=== PATIENT | female | born 1955 | race Caucasian/White ===

== ENCOUNTER 2023-11-26 18:51 | Emergency (ER) | payer OTHER, SELFPAY ==
[2023-11-26 19:05] VITALS: BP 182/114
[2023-11-26 21:24] VITALS: BP 179/96
--- NOTE | 2023-11-26 21:28 | ED.GENMED ---
History of Present Illness
General
Chief Complaint: Fall
Source: patient
Exam Limitations: none
Time Seen by Provider: 11/26/23 21:25
History of Present Illness
History of Present Illness:
See MDM
Past History
Past History
ED Past Medical History: Arrthythmia
ED Past Surgical History: Appendectomy
Social History
Tobacco: Non-smoker
Alcohol: None
Phy Exam
Physical Exam
Physical Exam:
See MDM
Course
Orders/Labs/Results
Orders:
Orders
11/26/23 19:[address] [CT Head W/o Iv Contrast] Urgent
Comment:
Reason For Exam: FALL SOFT TISSUE SELLING RIGHT FACE ON ELIQUIS
Vital Signs
Initial and Last Documented VS:
Initial Vital Signs
Temp Pulse Resp BP Pulse Ox
98.7 F 90 22 182/114 98
11/26/23 19:05 11/26/23 19:05 11/26/23 19:05 11/26/23 19:05 11/26/23 19:05
Last Documented Vital Signs
Temp Pulse Resp BP Pulse Ox
98.7 F 90 22 179/96 98
11/26/23 19:05 11/26/23 19:05 11/26/23 19:05 11/26/23 21:24 11/26/23 21:25
MDM/Problems Addressed
Differential Diagnosis Includes:
HPI and MDM Narrative:
36-year-old female presenting for evaluation of frontal head injury. Patient states she took too much Ambien by accident last night and she fell forward hitting her head. She is on Eliquis. She states her family encouraged her to come to the
emergency department to rule out any sort of head injury or bleeding.
By the time I evaluate the patient, CT was already performed and shows no evidence of intracranial hemorrhage. Patient states she feels great and feels comfortable going home
Physical exam
General: Well appearing and non-toxic
HEENT: protecting airway. Right forehead hematoma. Pupils equal and reactive
Neck: No cervical tenderness, supple
CV: No evidence of cyanosis
Resp: No accessory muscle use
Abd: Non-distended
Extremities: No deformities
Neuro: alert
Psych: Normal affect
Skin: Intact
Problems Addressed including Acute and Chronic Conditions affecting care:
1. Head injury
Acuity: acute
Prognosis: stable
Details: CT head negative for intracranial hemorrhage. Discussed return precautions
Differential Diagnosis (but not limited to): Concussion, head injury, intracranial bleed
Testing considered: CT cervical spine but no tenderness elicited
Drug therapy (if applicable): OTC meds, please see d/c instruction regarding Rx drugs
Amount and/or Complexity of Data Reviewed
Clinical info obtained from: Patient
External data reviewed: N/A
Labs I independently reviewed (but not limited to): N/A
Radiology: The CT scan was personally and independently reviewed. In addition, official CT report reviewed.
Pulse Ox: not hypoxic
EKG independently reviewed: N/A
Trust Administrative Assistant: N/A
Critical Care: N/A
Risk of Complication:
Social Determinants of health: Good social support
Discussed with other providers: N/A
Escalation of Care includes Admit/Obs: After being observed in the Emergency Department, pt stable for discharge.
Occasional wrong word or 'sound a like' substitutions may have occurred due to the inherent limitations of voice recognition software. Read the chart carefully and recognize, using context, where substitutions have occurred.
*Critical Care Note
Total Time (30-74mins, 75-104mins- exclusive of procedures): Not Applicable
ED Attending Note
-
Portions of this chart may have been created with voice recognition software.� Occasional wrong word or��sound alike� substitutions may have occurred due to the inherent limitations of voice recognition software.
Discharge Plan
Departure
Patient Disposition: Home (Routine Discharge)
Date of Disposition: 11/26/23
Time of Disposition: 21:37
Patient with high blood pressure during this ER visit?: Yes
Discharge Problem:
Head injury
Instructions: Head Injury in Adults (DC), BLOOD PRESSURE
Activity Restrictions/Additional Instructions:
Please return for any worsening symptoms.
You may return at any time if you have further concerns.
Please follow up with your doctor at the first available appointment, preferably this week.
Thank you for choosing [facility].
Interventions
Interventions:
*Risk Screen - Suicide Last Done: 11/26/23 19:05
*General Assessment Last Done: 11/26/23 21:26
*Neglect/Abuse Screening Last Done: 11/26/23 19:05
ED- Fall Risk Assessment Last Done: 11/26/23 21:26
ED-Musculoskeletal Assessment Last Done: 11/26/23 21:26
ED- Neurological Assessment Last Done: 11/26/23 21:26
ED-Skin Assessment Last Done: 11/26/23 21:26
Discharge Date and Time
Print Language: SAMMARINESE
== END 2023-11-26 21:41 | disposition home or self-care (01) ==
LOC: EMR 18:51
PROVIDERS: EMERGENCY PHYSICIAN Student in an Organized Health Care Education/Training Program; FAMILY PHYSICIAN Nurse Practitioner
DX: S09.90XA Unspecified injury of head, initial encounter (principal); W19.XXXA Unspecified fall, initial encounter; I48.91 Unspecified atrial fibrillation; Z79.01 Long term (current) use of anticoagulants
CPT/HCPCS: 99284; 70450

== ENCOUNTER → 2024-10-13 10:59 | Outpatient (REF) | payer OTHER, SELFPAY | LOC: HWRCS 10:59 | PROVIDERS: ATTENDING PHYSICIAN Internal Medicine Cardiovascular Disease; FAMILY PHYSICIAN Nurse Practitioner | DX: I48.0 Paroxysmal atrial fibrillation (principal) | CPT/HCPCS: 93306 ==